=== PATIENT | female | born 1995 | race Caucasian/White ===

== ENCOUNTER 2016-09-01 12:29 | Emergency (ER) | payer OTHER ==
[2016-09-01 14:07] LABS: Basophils % (Auto) 0.1 % (0.0-1.8); Eosinophils % (Auto) 0.3 % (0.0-4.3); Hematocrit 38.3 % (30.3-42.9); Hemoglobin 12.9 gm/dl (10.1-14.3); Mean Corpuscular HGB Conc 34 % (30-34); Mean Corpuscular Hemoglobin 29 pg (28-32); Mean Corpuscular Volume 85 fl (79-97); Platelet Count 308 K/mm3 (140-440); Red Cell Distribution Width 14.3 % (13.2-15.2); White Blood Count 18.9 K/mm3 (4.5-11.0)
[2016-09-01 14:10] LABS: Anion Gap 16 mmol/L; Blood Urea Nitrogen 10 mg/dL (7-17); Calcium 8.9 mg/dL (8.4-10.2); Carbon Dioxide 23 mmol/L (22-30); Chloride 103.3 mmol/L (98-107); Glucose 123 mg/dL (65-100); Potassium 3.5 mmol/L (3.6-5.0); Sodium 139 mmol/L (137-145)
[2016-09-01 15:17] LABS: Bacteria,Urine 2+ /HPF (Negative); Bilirubin,Urine NEG (Negative); Blood,Urine LG (Negative); Ketones,Urine NEG (Negative); Leukocyte Esterase,Urine LG (Negative); Nitrite,Urine POS (Negative); Urobilinogen,Urine < 2.0 mg/dL (<2.0)
[2016-09-01 15:22] LABS: RBC,Urine > 182.0 /HPF (0.0-6.0); WBC,Urine > 182.0 /HPF (0.0-6.0)
[2016-09-01] MEDS ORDERED: ROCEPHIN/NS 1 GM/50 ML 1 GM/50 ML BAG IV ONE (17:15)
[2016-09-01] MEDS ORDERED: ZOFRAN IV ONE (17:15)
[2016-09-01] MEDS ORDERED: MORPHINE IV ONE ×2 (17:15→18:26)
[2016-09-01] MEDS ORDERED: NACL 0.9% 1000 ML 1,000 ML IV ONE (17:16)
--- NOTE | 2016-09-01 17:18 | Emergency Department Report ---
<JESSICA MEJIA - Last Filed: 09/01/16 18:44> ED Abdominal Pain HPI - General Chief Complaint: Abdominal Pain Stated Complaint: SEVERE LWR RT ABD PAIN Time Seen by Provider: 09/01/16 17:07 Source: patient Mode of arrival: Ambulatory Limitations: No Limitations - History of Present Illness Initial Comments: 21-year-old female past medical history none presents with complaint of 2 days of right lower quadrant pain and tenderness which is intensifying. Patient denies any nausea or vomiting subjective chills. Denies any chest pain or shortness of breath. The patient finished her menstrual period yesterday. Denies any vaginal discharge. Mild increased urinary frequency. Denies any trauma or blunt force to abdomen. Patient is awake alert and oriented 3 appears uncomfortable while lying in bed. MD Complaint: abdominal pain Onset/Timin -: days(s) Location: RLQ Radiation: RLQ Severity: moderate Severity scale (0 -10): 6 Quality: sharp Consistency: constant - Related Data LMP Date: 08/31/16 LMP (females 10-50): this week Home Medications Medication Instructions Recorded Confirmed Last Taken No Known Home Medications [No 09/01/16 09/01/16 Unknown Reported Home Medications] Allergies Allergy/AdvReac Type Severity Reaction Status Date / Time No Known Allergies Allergy Unverified 09/01/16 13:23 ED Review of Systems ROS: Stated complaint: SEVERE LWR RT ABD PAIN Other details as noted in HPI Constitutional: denies: chills, fever Eyes: denies: eye pain, eye discharge, vision change ENT: denies: ear pain, throat pain Respiratory: denies: cough, shortness of breath, wheezing Cardiovascular: denies: chest pain, palpitations Endocrine: no symptoms reported Gastrointestinal: abdominal pain. denies: nausea, diarrhea Genitourinary: denies: urgency, dysuria, discharge Musculoskeletal: denies: back pain, joint swelling, arthralgia Skin: denies: rash, lesions Neurological: denies: headache, weakness, paresthesias Psychiatric: denies: anxiety, depression Hematological/Lymphatic: denies: easy bleeding, easy bruising ED Past Medical Hx - Past Medical History Previous Medical History?: No - Surgical History Past Surgical History?: No - Social History Smoking Status: Never Smoker Substance Use Type: Alcohol - Medications Home Medications: Home Medications Medication Instructions Recorded Confirmed Last Taken Type No Known Home Medications [No 09/01/16 09/01/16 Unknown History Reported Home Medications] ED Physical Exam - General Limitations: No Limitations General appearance: alert, in no apparent distress - Head Head exam: Present: atraumatic, normocephalic - Eye Eye exam: Present: normal appearance, PERRL, EOMI - ENT ENT exam: Present: mucous membranes moist - Neck Neck exam: Present: normal inspection - Respiratory Respiratory exam: Present: normal lung sounds bilaterally. Absent: respiratory distress - Cardiovascular Cardiovascular Exam: Present: regular rate, normal rhythm. Absent: systolic murmur, diastolic murmur, rubs, gallop - GI/Abdominal GI/Abdominal exam: Present: tenderness (tenderness and pain in right lower quadrant on palpation, positive iliopsoas sign right side), guarding, normal bowel sounds - External exam: Present: normal external exam Speculum exam: Present: normal speculum exam Bi-manual exam: Present: normal bi-manual exam - Extremities Exam Extremities exam: Present: normal inspection, full ROM, normal capillary refill - Back Exam Back exam: Present: normal inspection - Neurological Exam Neurological exam: Present: alert, oriented X3 - Psychiatric Psychiatric exam: Present: normal affect, normal mood - Skin Skin exam: Present: warm, dry, intact, normal color. Absent: rash ED Course Vital Signs 09/01/16 09/01/16 09/01/16 13:19 17:39 18:28 Temperature 98.6 F Pulse Rate 58 L Respiratory 17 18 18 Rate Blood Pressure 125/79 O2 Sat by Pulse 98 Oximetry ED Medical Decision Making - Lab Data Result diagrams: 09/01/16 13:41 09/01/16 13:41 - Medical Decision Making A/P: Pain, cystitis, rule out appendicitis 1- 2- 3- 4- 5- Critical care attestation.: If time is entered above; I have spent that time in minutes in the direct care of this critically ill patient, excluding procedure time. ED Disposition Clinical Impression: Abdominal pain Qualifiers: Abdominal location: right lower quadrant Qualified Code(s): R10.31 - Right lower quadrant pain UTI (urinary tract infection) Qualifiers: Urinary tract infection type: site unspecified Hematuria presence: with hematuria Qualified Code(s): N39.0 - Urinary tract infection, site not specified ; R31.9 - Hematuria, unspecified Leukocytosis Qualifiers: Leukocytosis type: unspecified Qualified Code(s): D72.829 - Elevated white blood cell count, unspecified Disposition: DISCHARGED TO HOME OR SELFCARE Condition: Stable Instructions: Abdominal Pain (ED), Urinary Tract Infection in Women (ED), Acute Pyelonephritis (ED) Additional Instructions: Call your PMD in the am to arrange follow up No driving after narcotic pain medication Finish all of your antibiotics Return to the ED if you start feeling worse, develop fevers, chills, nausea or vomiting, or have an increase in pain Referrals: JAMES KRAFT MD [Primary Care Provider] - 3-5 Days Forms: Work/School Release Form(ED) <CHEIKH MELVIN - Last Filed: 09/01/16 20:40> ED Physical Exam - External exam: 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 PT's abd is soft and non tender at this time. PT aware of lab/CT results. PT has no LUQ abd pain. PT does report that certain foods will cause her to have heartburn. PT is currently not treating her heartburn. PT aware of dc and plan of care. Strict return precautions reviewed. PT has no questions at this time - Pulse Oximetry Interpretation Digit-Finger Initial Pulse Oximetry Readin Actions Taken: none ED Medical Decision Making - Lab Data Result diagrams: 09/01/16 13:41 09/01/16 13:41 - Radiology Data Radiology results: report reviewed CT abd/pelvis - visualized portions of the appendix do not appear inflamed, no signs of acute appendicitis. mild thickening of the duodenum - Differential Diagnosis uti, cervicitis, appendicitis Critical Care Time: No ED Disposition Is pt being admited?: No Does the pt Need Aspirin: No Time of Disposition: 20:40
[2016-09-01] MEDS ORDERED: NACL ONE (19:05)
--- NOTE | 2016-09-01 20:19 | Cat Scan Report ---
FINAL REPORT PROCEDURE: CT ABDOMEN PELVIS W CON TECHNIQUE: Computerized axial tomography of the abdomen and pelvis was performed after the IV injection of iodinated nonionic contrast. HISTORY: Right lower quadrant pain COMPARISON: No prior studies are available for comparison. FINDINGS: Visualized lower thorax: No significant abnormality. Liver: Normal size and attenuation. Spleen: Normal size and attenuation. Gallbladder and biliary system: Gallbladder is present and mildly distended. Pancreas: Normal. Adrenals: Normal. Kidneys: Normal. GI tract: Visualized portions of the appendix do not appear inflamed. No pericecal inflammatory changes are seen. No evidence of bowel obstruction. There is mild wall thickening of the duodenum, without surrounding inflammatory changes. However cannot exclude mild duodenitis.. Lymph nodes and mesentery: Normal. Vasculature: Normal. Bladder: Normal. Reproductive organs: Grossly unremarkable. Peritoneum: No free fluid. Musculoskeletal structures: No significant abnormality. Other: None. IMPRESSION: No evidence of acute appendicitis. There is mild wall thickening of the duodenum. No surrounding inflammatory changes are seen, however cannot exclude mild duodenitis. Correlate clinically
[2016-09-01 20:59] VITALS: BP 115/77
== END 2016-09-01 20:58 | disposition home or self-care (01) ==
LOC: ED 12:29
DX: R31.9 Hematuria, unspecified (principal); D72.829 Elevated white blood cell count, unspecified; R10.31 Right lower quadrant pain
CPT/HCPCS: 36415; 74177; 80048; 81001; 84703; 85025; 87076; 87086; 87186; 87210; 87591; 96365; 96375; 96376; 99285; J0696; J2270; J2405; J7030; Q9967